=== PATIENT | male | born 1990 | race African-American/Black ===

== ENCOUNTER 2017-06-03 12:04 | Emergency (ER) | payer OTHER ==
[~2017-06-03] VITALS: Ht 170.2 cm; Wt 68.0 kg
[2017-06-03 12:26] VITALS: BP 126/88
[2017-06-03] MEDS ORDERED: CEPHALEXIN500 MG ORAL (12:55)
[2017-06-03] MEDS ORDERED: BACTRIM DS TAB1 EAC1 ORAL (12:55)
[2017-06-03] MEDS ORDERED: IBUPROFEN600 MG ORAL (12:55)
--- NOTE | 2017-06-03 12:56 | Emergency Room Report ---
History of Present Illness General Chief Complaint: Skin Rash/Abscess Source: Patient Present Illness HPI 27-year-old male presents to ER complaining of abscess on left buttock. Patient reports bump was "small a few days ago" and has since gotten bigger. Patient abscess has begun to drain pus. Patient reports tender to palpation. Patient denies difficulty with defecating. Patient denies blood in stool. Patient has not taken any medications for relief of symptoms. Patient is fever, nausea, vomiting, shortness of breath, rash. Allergies: Coded Allergies: No Known Allergies (Unverified , 06/03/17) Patient History Past Medical History: see triage record Past Surgical History: none Immunizations: UTD Reviewed Nursing Documentation: PMH: Agreed, PSxH: Agreed Nursing Documentation-PMH Past Medical History: No Stated History Review of Systems All Other Systems: negative except mentioned in HPI Physical Exam Vital Signs Date Time Temp Pulse Resp B/P (MAP) Pulse Ox O2 Delivery O2 Flow Rate FiO2 06/03/17 12:21 99.0 108 18 126/88 97 Room Air General Appearance: alert, GCS 15, non-toxic, mild distress Head: normocephalic, atraumatic Eyes: bilateral eye normal inspection, bilateral eye PERRL Neck: full range of motion, supple/symm/no masses Respiratory: lungs clear, normal breath sounds, speaking full sentences Cardiovascular #1: regular rate, rhythm Musculoskeletal: back normal, gait/station normal, normal range of motion, non- tender, calf tenderness Neurologic: alert, oriented x3, responsive, motor strength/tone normal, sensory intact, speech normal Psychiatric: mood/affect normal Skin: normal color, no rash, other - left buttock: 2-3 cm indurated abscess, draining pus and blood Medical Decision Making PA Attestation Dr. Cardenas is my supervising Physician whom patient management has been discussed with. Diagnostic Impression: Primary Impression: Abscess ER Course Pt. presents to the ED c/o abscess Ddx considered but are not limited to cellulitis, abscess, sebaceous cyst. Vital signs: are stable for this patient, pt. is afebrile ORDERS: None required at this time, diagnosis is clinical. ED INTERVENTIONS: Ibuprofen for pain Keflex PO, one dose DISCHARGE: -Rx provided for Keflex -Rx provided for Bactrim -Rx provided for Ibuprofen -Rx provided for Bacitracin ointment At this time pt. is stable for d/c to home. Wound has been cleaned and dressed with sterile gauze and bacitracin ointment. Patient instructed to keep dressing clean and dry; provided with extra gauze and tape for redressing wound. Will provide printed patient care instructions and any necessary prescriptions. Care plan and follow up instructions have been discussed with the patient prior to discharge. Patient instructed to follow-up with primary care provider in 2 - 3 days for wound recheck. Patient questions asked and answered. ER precautions given. Patient instructed to return to ER immediately for any new or worsening of symptoms including but not limited to fever, worsening of pain symptoms. Last Vital Signs Date Time Temp Pulse Resp B/P (MAP) Pulse Ox O2 Delivery O2 Flow Rate FiO2 06/03/17 12:26 98.9 100 18 126/88 97 Room Air Disposition: HOME, SELF-CARE Condition: Stable Scripts Bacitracin/Polymyxin B Sulfate (BACITRACIN-POLYMYXIN OINTMENT) 28.35 Gm Oint...g. 1 APPLIC TP BID for 7 Days, GM Prov: Sebastian Dominguez 06/03/17 Ibuprofen* (MOTRIN*) 600 Mg Tablet 600 MG ORAL Q8H Y for For Pain, #30 TAB 0 Refills Prov: Sebastian Dominguez 06/03/17 Trimethoprim/Sulfamethoxazole 160/800* (BACTRIM DS TABLET*) 1 Each Tablet 1 TAB ORAL TWICE A DAY for 7 Days, #14 TAB Prov: Sebastian Dominguez 06/03/17 Cephalexin* (KEFLEX*) 500 Mg Capsule 500 MG ORAL EVERY 12 HOURS, #13 CAP 0 Refills Prov: Sebastian Dominguez 06/03/17 Patient Instructions: Abscess Additional Instructions: Followup with primary care provider in 3 -5 days for wound check. Take medications as directed. Patient questions asked and answered. ER precautions given, patient instructed to return to ER immediately for any new or worsening of symptoms including but not limited to fever. Sebastian Dominguez Jun 03, 2017 12:55
[2017-06-03 13:00] VITALS: BP 0/0
[2017-06-03] MEDS ORDERED: Polysporin Oint 30gm TOPIC SCH (13:00)
[2017-06-03] MEDS ORDERED: Cephalexin 500mg cap ORAL ONE (13:00)
[2017-06-03] MEDS ORDERED: BACITRACIN-P28.35 GM TP (13:06)
[2017-06-03] MEDS ORDERED: Bacitracin Oint UD TOPIC ONE (13:10)
== END 2017-06-03 13:00 | disposition home or self-care (01) ==
LOC: EMR 12:50
DX: L02.31 Cutaneous abscess of buttock (principal)
CPT/HCPCS: 99283

== ENCOUNTER 2018-01-02 15:52 | Emergency (ER) | payer OTHER ==
[~2018-01-02] VITALS: Ht 170.2 cm; Wt 63.5 kg
[~2018-01-02 15:52] MED LIST: BACITRACIN-P28.35 GM TP; BACTRIM DS TAB1 EAC1 ORAL; CEPHALEXIN500 MG ORAL; IBUPROFEN600 MG ORAL
[2018-01-02 16:07] VITALS: BP 129/78
[2018-01-02] MEDS ORDERED: OCUFLOX5 ML RIGHT EYE (16:35)
[2018-01-02 16:40] VITALS: BP 129/78
--- NOTE | 2018-01-06 14:33 | Emergency Room Report ---
History of Present Illness General Chief Complaint: Eye Problems Source: Patient Present Illness HPI 27-year-old male presents ED for evaluation. Complaining of right eye redness and itchiness 2 days. Denies photophobia or blurry vision. Denies any discharge. Denies any sick contacts or recent travel. No other aggravating relieving factors. Denies any other associated symptoms Allergies: Coded Allergies: Shrimp (Verified Allergy, Unknown, 01/02/18) Patient History Past Medical History: none Past Surgical History: none Pertinent Family History: none Social History: Denies: smoking, alcohol use, drug use Immunizations: UTD Reviewed Nursing Documentation: PMH: Agreed; PSxH: Agreed Nursing Documentation-PMH Past Medical History: No Stated History Review of Systems All Other Systems: negative except mentioned in HPI Physical Exam Vital Signs Date Time Temp Pulse Resp B/P (MAP) Pulse Ox O2 Delivery O2 Flow Rate FiO2 01/02/18 16:06 98.7 102 18 129/78 97 Room Air 98.8 Sp02 EP Interpretation: reviewed, normal General Appearance: no apparent distress, alert, GCS 15, non-toxic Head: normocephalic Eyes: right eye Scleral Injection; bilateral eye PERRL, bilateral eye EOMI, bilateral eye visual acuity ENT: hearing grossly normal, normal pharynx, no angioedema, normal voice Neck: full range of motion, supple/symm/no masses Respiratory: chest non-tender, lungs clear, normal breath sounds, speaking full sentences Cardiovascular #1: normal inspection Gastrointestinal: normal inspection Rectal: deferred Genitourinary: no CVA tenderness Musculoskeletal: normal inspection Neurologic: alert, oriented x3, responsive, motor strength/tone normal, sensory intact, speech normal Psychiatric: normal inspection Skin: normal inspection Lymphatic: normal inspection Medical Decision Making Diagnostic Impression: Primary Impression: Conjunctivitis Qualified Codes: H10.31 - Unspecified acute conjunctivitis, right eye ER Course Hospital Course 27-year-old M presents to ED with R eye redness, itchiness Differential diagnoses include: conjunctivitis, traumatic iritis, foreign body, corneal abrasion Clinical course Patient placed on stretcher. After initial history, physical exam revealed a male no acute distress. There is injected conjunctiva R eyes. Pupils equally reactive to light bilaterally. No evidence of foreign body. Clinical findings consistent with conjunctivitis. Is cussed findings with patient. Safe for discharge. I'll prescribe ophthalmic antibiotics. Close follow-up with PMD Diagnosis - conjunctivitis Stable and discharged to home with prescription for Ocuflox. Followup with PMD/ Optho. Return to ED if symptoms recur or worsen Last Vital Signs Date Time Temp Pulse Resp B/P (MAP) Pulse Ox O2 Delivery O2 Flow Rate FiO2 01/02/18 16:40 98.8 18 129/78 97 Room Air 98.8 01/02/18 16:06 102 Status: improved Disposition: HOME, SELF-CARE Condition: Stable Scripts Ofloxacin (OCUFLOX) 5 Ml Drops 1 DROP RIGHT EYE QID for 7 Days, ML Prov: Shamar Cardenas MD 01/02/18 Referrals: [facility],REFERRING (PCP) Patient Instructions: Bacterial Conjunctivitis, [id number] Shamar Cardenas MD Jan 06, 2018 14:33
== END 2018-01-02 16:39 | disposition home or self-care (01) ==
LOC: EMR 16:39
DX: H10.31 Unspecified acute conjunctivitis, right eye (principal)
CPT/HCPCS: 99281; 99283

== ENCOUNTER 2018-01-07 14:54 | Emergency (ER) | payer OTHER ==
[~2018-01-07] VITALS: Ht 170.2 cm; Wt 63.5 kg
[~2018-01-07 14:54] MED LIST changes: +OCUFLOX5 ML RIGHT EYE
[2018-01-07] MEDS ORDERED: Fluorescein Strips RIGHT EYE ONE (16:00)
[2018-01-07] MEDS ORDERED: Tetracaine 0.5% Opth 4ml Soln RIGHT EYE ONE (16:00)
--- NOTE | 2018-01-07 16:03 | Emergency Room Report ---
History of Present Illness General Chief Complaint: Eye Problems Source: Patient Present Illness HPI 19-year-old male presents emergency department complaining of worsening of his eyes symptoms. Patient states that he was diagnosed with conjunctivitis several days ago and he has been using his antibiotic eyedrops. Patient reports that his symptoms have not resolved and he now is having symptoms in his left eye. Patient reports purulent discharge which is worse in the morning with crusting. Patient denies changes in vision or loss of vision. Patient denies appreciable photophobia he reports increased lacrimation out of both eyes. Patient denies scratching sensation or foreign body sensation. Patient denies contact lens use. Denies: Tender lymph nodes. He also denies pain with movements of the eyes. Denies appreciable pain 4/10 in severity discomfots. Denies Loss of vision, Floaters, or Flashing lights. Allergies: Coded Allergies: Shrimp (Verified Allergy, Unknown, 01/02/18) Patient History Past Medical History: see triage record Past Surgical History: none Pertinent Family History: none Immunizations: UTD Reviewed Nursing Documentation: PMH: Agreed; PSxH: Agreed Nursing Documentation-PMH Past Medical History: No Stated History Review of Systems All Other Systems: negative except mentioned in HPI Physical Exam Vital Signs Date Time Temp Pulse Resp B/P (MAP) Pulse Ox O2 Delivery O2 Flow Rate FiO2 01/07/18 15:19 97.6 83 14 115/71 96 Room Air 97.5 Sp02 EP Interpretation: reviewed, normal General Appearance: no apparent distress, alert, GCS 15, non-toxic Head: normocephalic, atraumatic Eyes: bilateral eye normal inspection, bilateral eye PERRL, bilateral eye EOMI , bilateral eye visual acuity, bilateral eye other - yellow-greenish d/c noted mainly in the right eye, some in the left. erythema is noted. ENT: hearing grossly normal, normal voice Neck: full range of motion Respiratory: speaking full sentences Cardiovascular #1: regular rate, rhythm Musculoskeletal: back normal, gait/station normal, normal range of motion, non- tender Neurologic: alert, oriented x3, responsive, motor strength/tone normal, sensory intact, speech normal, grossly normal Psychiatric: judgement/insight normal Skin: normal color, no rash, warm/dry, well hydrated Lymphatic: no adenopathy Medical Decision Making PA Attestation Dr. Campbell is my supervising Physician whom patient management has been discussed with. Diagnostic Impression: Primary Impression: Conjunctivitis Qualified Codes: B30.9 - Viral conjunctivitis, unspecified ER Course 19-year-old male presents emergency department complaining of worsening of his eyes symptoms. Patient states that he was diagnosed with conjunctivitis several days ago and he has been using his antibiotic eyedrops. Patient reports that his symptoms have not resolved and he now is having symptoms in his left eye. Patient reports purulent discharge which is worse in the morning with crusting. Patient denies changes in vision or loss of vision. Patient denies appreciable photophobia he reports increased lacrimation out of both eyes. Patient denies scratching sensation or foreign body sensation. Patient denies contact lens use. Denies: Tender lymph nodes. He also denies pain with movements of the eyes. Denies appreciable pain 4/10 in severity discomfort. Denies Loss of vision, Floaters, or Flashing lights. Ddx considered but are not limited to: corneal abrasion, acute glaucoma, globe rupture, FB, Corneal Ulcer, conjunctivitis. Iridis, orbital cellulitis,keratitis , sinusitis Vital signs: are WNL, pt. is afebrile H&PE are most consistent with: bacterial conjunctivitis ORDERS: none at this time. ED INTERVENTIONS: none at this time. DISCHARGE: At this time pt. is stable for d/c to home. Will provide printed patient care instructions, and any necessary prescriptions. Care plan and follow up instructions have been discussed with the patient prior to discharge. Last Vital Signs Date Time Temp Pulse Resp B/P (MAP) Pulse Ox O2 Delivery O2 Flow Rate FiO2 01/07/18 15:19 97.6 83 14 115/71 96 Room Air 97.5 Disposition: HOME, SELF-CARE Condition: Stable Scripts Erythromycin Base (Erythromycin) 1 Gm Oint...g. 1 APPLIC OP BID, #1 GM Prov: Adrienne Vazquez 01/07/18 Patient Instructions: Bacterial Conjunctivitis, [id number] Additional Instructions: Take medications as directed. Follow up with a Manager Hematology within 2 days, even if your symptoms have resolved. --Please review list of primary care clinics, if you do not already have a primary care provider Return sooner to ED if new symptoms occur, or current symptoms become worse. - Please note that this Emergency Department Report was dictated using [employer] 9 12 tutor technology software, occasionally this can lead to erroneous entry secondary to interpretation by the dictation equipment. Adrienne Vazquez Jan 07, 2018 16:03
[2018-01-07 16:04] VITALS: BP 118/72
[2018-01-07] MEDS ORDERED: ERYTHROMYCIN1 G1 OP (16:05)
[2018-01-07 16:15] VITALS: BP 118/72
== END 2018-01-07 17:45 | disposition home or self-care (01) ==
LOC: EMR 15:41
DX: B30.9 Viral conjunctivitis, unspecified (principal); Z91.013 Allergy to seafood
CPT/HCPCS: 99282